=== PATIENT | male | born 1945 | race Caucasian/White ===

== ENCOUNTER 2017-09-22 13:28 | Observation (INO) | payer OTHER, MEDICARE ==
[~2017-09-22] VITALS: Ht 177.8 cm; Wt 114.6 kg
[~2017-09-22 13:28] MED LIST: ALLOPURINOL300 MG PO; AMLODIPINE BESYL5 MG PO; ANTIVERT25 MG PO; ASPIR 8181 M1 PO; CALCIUM 600+D1 EACH PO; FLEXERIL5 MG PO; LISINOPRIL-HCT1 EAC3 PO; MAGNESIUM250 MG PO; METFORMIN HCL1000 MG PO; PERCOCET 5/31 TABLET PO; SIMVASTATIN20 MG PO; TERAZOSIN HCL5 MG PO; ZOFRAN4 MG PO
[2017-09-22 15:33] LABS: BASOPHIL COUNT 0.1 K/uL (0-0.1); EOSINOPHIL (%) 2.9 % (0-5); EOSINOPHIL COUNT 0.2 K/uL (0-0.3); HEMATOCRIT 41.4 % (38.0-50.0); IMMATURE GRANULOCYTE (%) 0.5 % (0.0-0.7); INSTRUMENT ABS NEUTROPHIL CT 5.9 K/uL; LYMPHOCYTE COUNT 1.4 K/uL (1.0-2.8); MCH 30.6 PG (29.0-34.0); MCHC 33.8 G/DL (30.0-36.0); MCV 90.4 FL (86-99); MEAN PLAT.VOLUME 10.6 uM^3 (9.0-12.4); MONOCYTE (%) 7.9 % (3-12); MONOCYTE COUNT 0.7 K/uL (0-0.8); NEUTROPHIL (%) 71.6 % (45-76); NEUTROPHIL COUNT 5.9 K/uL (1.8-6.4); PLATELET COUNT 191 K/uL (156-360); RBC DIS.WIDTH-SD 42.5 % (39-53); RED BLOOD COUNT 4.58 M/uL (4.00-5.50); WHITE BLOOD COUNT 8.2 K/uL (4.1-10.2)
[2017-09-22 15:41] LABS: INTER. NORMALIZED RATIO 1.2; PROTHROMBIN TIME 13.2 SEC (10.2-12.9)
[2017-09-22 15:43] LABS: PTT 32.3 SEC (25-37)
[2017-09-22 15:44] LABS: CHLORIDE 106 mEq/L (99-109); SODIUM 143 mEq/L (136-147)
[2017-09-22 15:45] LABS: MAGNESIUM 1.7 mg/dL (1.3-2.7)
[2017-09-22 15:47] LABS: GLUCOSE 155 mg/dL (70-99)
[2017-09-22 15:48] LABS: ANION GAP 10 MEQ/L (2-14); TOTAL BILIRUBIN 0.4 mg/dL (0.0-1.0)
[2017-09-22 15:50] LABS: ALKALINE PHOSPHATASE 78 IU/L (3-129); GFR ESTIMATE (CALCULATED) > 59 mL/min/
[2017-09-22 15:51] LABS: UREA NITROGEN (BUN) 15 mg/dL (9-23)
[2017-09-22 15:53] LABS: TROP-I INTERPRETATION NEGATIVE; TROPONIN-I 0.03 ng/mL (0.0-0.30)
[2017-09-22 17:15] LABS: TROP-I INTERPRETATION NEGATIVE; TROPONIN-I 0.02 ng/mL (0.0-0.30)
[2017-09-22] MEDS ORDERED: GLIMEPIRIDE4 MG PO (17:21)
[2017-09-22] MEDS ORDERED: LANTUS 3 M100 UNITS1 SC (17:21)
[2017-09-22 21:06] VITALS: BP 126/72
[2017-09-22 23:54] LABS: TROP-I INTERPRETATION NEGATIVE; TROPONIN-I 0.02 ng/mL (0.0-0.30)
[2017-09-23 00:16] LABS: POINT-OF-CARE METER ID UU13113700
[2017-09-23 00:34] VITALS: BP 108/73
[2017-09-23 04:00] VITALS: BP 113/63
[2017-09-23 05:33] LABS: HEMATOCRIT 40.7 % (38.0-50.0); MCH 30.3 PG (29.0-34.0); MCHC 33.2 G/DL (30.0-36.0); MCV 91.5 FL (86-99); MEAN PLAT.VOLUME 10.7 uM^3 (9.0-12.4); PLATELET COUNT 194 K/uL (156-360); RBC DIS.WIDTH-CV 13.3 % (11.8-14.6); RBC DIS.WIDTH-SD 44.5 % (39-53); RED BLOOD COUNT 4.45 M/uL (4.00-5.50); WHITE BLOOD COUNT 8.7 K/uL (4.1-10.2)
[2017-09-23 05:37] LABS: INTER. NORMALIZED RATIO 1.2; PROTHROMBIN TIME 14.1 SEC (10.2-12.9)
[2017-09-23 05:39] LABS: PTT 38.4 SEC (25-37)
[2017-09-23 05:50] LABS: TROP-I INTERPRETATION NEGATIVE; TROPONIN-I 0.02 ng/mL (0.0-0.30)
[2017-09-23 05:59] LABS: ALKALINE PHOSPHATASE 52 IU/L (3-129); ANION GAP 7 MEQ/L (2-14); CHLORIDE 104 MEQ/L (99-109); GFR ESTIMATE (CALCULATED) > 59 mL/min/; GLUCOSE 128 mg/dL (70-99); POTASSIUM 4.3 MEQ/L (3.7-5.4); SAMPLE HEMOLYSIS CHECK 0; SAMPLE ICTERIC CHECK 0; SAMPLE LIPEMIA CHECK 0; SODIUM 141 MEQ/L (136-147); TOTAL BILIRUBIN 0.7 MG/DL (0.0-1.0); UREA NITROGEN (BUN) 15 mg/dL (9-23)
[2017-09-23 07:30] VITALS: BP 121/62
[2017-09-23 08:20] LABS: POINT-OF-CARE METER ID UU13113700
[2017-09-23 11:39] VITALS: BP 119/69
[2017-09-23 11:54] LABS: POINT-OF-CARE METER ID UU13113700
[2017-09-23] MEDS ORDERED: LOPRESSOR25 MG PO (12:14)
== END 2017-09-23 13:29 | disposition home or self-care (01) ==
LOC: EME 13:28 → 5WEST 18:51 → EDOF 18:51 → 5WEST 18:51 → ENRESERV 19:05 → 5WEST 20:46
PROVIDERS: Emergency Medicine; Hospitalist
DX: I48.0 Paroxysmal atrial fibrillation (principal); R07.89 Other chest pain; E11.9 Type 2 diabetes mellitus without complications; I10 Essential (primary) hypertension; R94.5 Abnormal results of liver function studies; E78.5 Hyperlipidemia, unspecified; K80.20 Calculus of gallbladder without cholecystitis without obstruction; G60.9 Hereditary and idiopathic neuropathy, unspecified; Z87.891 Personal history of nicotine dependence; E66.9 Obesity, unspecified; Z68.36 Body mass index [BMI] 36.0-36.9, adult; Z79.4 Long term (current) use of insulin; Z79.82 Long term (current) use of aspirin
CPT/HCPCS: 71010; 76705; 80053; 82948; 83735; 84443; 84484; 85025; 85027; 85610; 85730; 93005; 93306; G0378; J1650; J7040; J7050